=== PATIENT | female | born 1950 | race Caucasian/White ===

== ENCOUNTER 2018-10-25 09:41 | Emergency (ER) | payer BC, MEDICARE ==
[2018-10-25 10:02] VITALS: BP 158/114
--- NOTE | 2018-10-25 10:17 | UC ---
Skin Complaint HPI - HPI Summary HPI Summary: Patient removed a tick from her right lower abdomen and upper right leg on Thursday which had been embedded only a few hours after she had been outdoors. She is here for the doxycycline prophylaxis. - History of Current Complaint Chief Complaint: UCSkin Time Seen by Provider: 10/25/18 10:15 Stated Complaint: TICK BITE Hx Obtained From: Patient ?: No Onset/Duration: Sudden Onset Skin Exposure Onset/Duration: Days Ago Timing: Constant Onset Severity: Mild Current Severity: Mild Pain Intensity: 5 Location: Other - Right lower abdomen and right upper leg. Character: Redness - Very small red laith where the tick bit the patient Aggravating Factor(s): Nothing Alleviating Factor(s): Nothing Associated Signs & Symptoms: Positive: Negative - Allergy/Home Medications Allergies/Adverse Reactions: Allergies Allergy/AdvReac Type Severity Reaction Status Date / Time No Known Allergies Allergy Verified 10/25/18 10:02 Home Medications: Home Medications Hydrochlorothiazide TAB* [Hydrodiuril TAB*] 25 mg PO DAILY 10/25/18 [History Confirmed 10/25/18] PMH/Surg Hx/FS Hx/Imm Hx Previously Healthy: Yes Cardiovascular History: Cardiac Disease, Hypertension - Surgical History Surgical History: Yes Surgery Procedure, Year, and Place: JUL 2014 STENT PLACEMENT S/P [place] - Family History Known Family History: Positive: Non-Contributory - Social History Alcohol Use: Rare Substance Use Type: None Smoking Status (MU): Never Smoked Tobacco - Immunization History Most Recent Influenza Vaccination: mar 2014 Most Recent Tetanus Shot: unknown Most Recent Pneumonia Vaccination: unknown Review of Systems All Other Systems Reviewed And Are Negative: Yes Skin: Positive: Other - Small area of redness on the right lower abdomen and right upper leg where the tick bit the patient. Is Patient Immunocompromised?: No Physical Exam Triage Information Reviewed: Yes Appearance: Well-Appearing, No Pain Distress, Well-Nourished Vital Signs: Initial Vital Signs Temp 98.6 F 10/25/18 09:57 Pulse 74 10/25/18 09:57 Resp 20 10/25/18 09:57 BP 158/114 10/25/18 09:57 Pulse Ox 99 10/25/18 09:57 Vital Signs Reviewed: Yes Skin: Positive: Other - Small area right upper leg where the tick that the patient with minimal erythema present, nontender, no drainage. Small erythematous area right lower abdomen which is nontender and no drainage. Course/Dx - Course Course Of Treatment: Patient has been comfortable here. She had removed the tick after only a few hours of it being embedded in the right upper leg. She requests the doxycycline prophylaxis which was given 200 mg by mouth 1 time. She is to follow-up with her primary care provider if any further concerns or signs of illness which were discussed with her over the next 2-4 weeks. - Diagnoses Provider Diagnosis: Tick bite of abdomen, Tick bite of right lower leg Discharge - Sign-Out/Discharge Documenting (check all that apply): Patient Departure All imaging exams completed and their final reports reviewed: No Studies - Discharge Plan Condition: Good Disposition: HOME Prescriptions: DOXYcycline CAP(*) [DOXYcycline 100MG CAP(*)] 100 mg PO DAILY 1 Days #2 cap Patient Education Materials: Tick Bite (ED) Referrals: La Rose MD [Primary Care Provider] - Additional Instructions: Follow-up with your primary care provider if you develop fever, chills, body aches, joint aches or rash over the next 2-4 weeks. Do not eat any dairy products, antacids or multivitamins 2 hours before you take the doxycycline and 2 hours after you take the doxycycline. - Billing Disposition and Condition Condition: GOOD Disposition: Home - Attestation Statements Provider Attestation: I was available for consult. This patient was seen by the CAREN. The patient was not presented to, seen by, or examined by me. -Padmaja
== END 2018-10-25 10:30 | disposition home or self-care (01) ==
LOC: UCEAST 09:41
DX: S30.861A Insect bite (nonvenomous) of abdominal wall, initial encounter (principal); S80.861A Insect bite (nonvenomous), right lower leg, initial encounter; W57.XXXA Bitten or stung by nonvenomous insect and other nonvenomous arthropods, initial encounter; Y92.9 Unspecified place or not applicable; I11.9 Hypertensive heart disease without heart failure; Z95.5 Presence of coronary angioplasty implant and graft
CPT/HCPCS: 99212; G0463

== ENCOUNTER 2018-11-16 07:25 | Emergency (ER) | payer MEDICARE ==
[2018-11-16 07:36] VITALS: BP 157/98
--- NOTE | 2018-11-16 09:30 | UC ---
Skin Complaint HPI - HPI Summary HPI Summary: PATIENT NOTICED A TICK ATTACHED TO HER LEFT MID BACK WHILE IN THE SHOWER YESTERDAY. THINKS IT MAY HAVE ATTACHED 3 DAYS AGO WHILE SHE WAS [place]. SHE REPORTS HAVING SEVERAL WEEKS OF HEADACHE AND DIFFUSE JOINT PAIN WHICH IS NOT NORMAL FOR HER. SHE STATES SHE HAD A TICK SEVERAL WEEKS AGO AND 2 TICKS ABOUT 3 MONTHS AGO. IS CONCERNED ABOUT LYME DISEASE. NO RASH. NO FEVER. - History of Current Complaint Chief Complaint: UCSkin Time Seen by Provider: 11/16/18 09:11 Stated Complaint: TICK BITE TO BACK Hx Obtained From: Patient Onset/Duration: Still Present Timing: Constant Onset Severity: Mild Current Severity: Mild Pain Intensity: 0 Pain Scale Used: 0-10 Numeric Aggravating Factor(s): Nothing Alleviating Factor(s): Nothing Related History: Insect Bite/Sting - Allergy/Home Medications Allergies/Adverse Reactions: Allergies Allergy/AdvReac Type Severity Reaction Status Date / Time No Known Allergies Allergy Verified 11/16/18 07:37 PMH/Surg Hx/FS Hx/Imm Hx Cardiovascular History: Cardiac Disease - STENT, Hypertension - Surgical History Surgical History: Yes Surgery Procedure, Year, and Place: JUL 2014 STENT PLACEMENT S/P [place] - Family History Known Family History: Positive: Non-Contributory - Social History Alcohol Use: Rare Substance Use Type: None Smoking Status (MU): Never Smoked Tobacco - Immunization History Most Recent Influenza Vaccination: mar 2014 Most Recent Tetanus Shot: unknown Most Recent Pneumonia Vaccination: unknown Review of Systems All Other Systems Reviewed And Are Negative: Yes Constitutional: Positive: Negative Skin: Positive: Other - TICK ATTACHED TO LEFT MID BACK Respiratory: Positive: Negative Cardiovascular: Positive: Negative Gastrointestinal: Positive: Negative Musculoskeletal: Positive: Arthralgia Neurological: Positive: Headache Physical Exam Triage Information Reviewed: Yes Appearance: Well-Appearing, No Pain Distress, Well-Nourished Vital Signs: Initial Vital Signs Temp 97.7 F 11/16/18 07:34 Pulse 85 11/16/18 07:34 Resp 16 11/16/18 07:34 BP 157/98 11/16/18 07:34 Pulse Ox 100 11/16/18 07:34 Vital Signs Reviewed: Yes Eyes: Positive: Conjunctiva Clear ENT: Positive: Hearing grossly normal Neck: Positive: Supple Respiratory: Positive: No respiratory distress, No accessory muscle use Cardiovascular: Positive: Pulses Normal Abdomen Description: Positive: Soft Musculoskeletal: Positive: No Edema Neurological: Positive: Alert Psychological: Positive: Age Appropriate Behavior Skin: Positive: Other - TICK ATTACHED LEFT MID BACK. SLIGHTLY ENGORGED Course/Dx - Course Course Of Treatment: TICK REMOVED IN ENTIRETY FROM LEFT MID BACK BY Afia USING TICK TWISTER. PROPHYLACTIC 200 MG DOSE OF DOXYCYCLINE PROVIDED. PATIENT HAS HAD SEVERAL TICK BITES OVER THE PAST FEW MONTHS AND RECENTLY HAS DEVELOPED HEADACHE AND JOINT PAIN. IS REQUESTING LYME DISEASE TESTING. LYME SEROLOGY DRAWN TODAY. CONTACT INFORMATION FOR DR. JULIETA GALLEGOS PROVIDED. ADVISED TO FOLLOW-UP WITH HER PCP WELL TO INVESTIGATE FOR OTHER UNDERLYING CAUSES OF HER SYMPTOMS. - Diagnoses Provider Diagnosis: Tick bite of back Discharge - Sign-Out/Discharge Documenting (check all that apply): Patient Departure All imaging exams completed and their final reports reviewed: No Studies - Discharge Plan Condition: Stable Disposition: HOME Prescriptions: Doxycycline Monohydrate 2 cap PO ONCE #2 cap Patient Education Materials: Tick Bite (ED) Referrals: Rudy Galleogs MD [Medical Doctor] - If Needed La Rose MD [Primary Care Provider] - If Needed Additional Instructions: TICK BITE PROPHYLAXIS You received a prescription for 200mg of doxycycline for prophylaxis against Lyme disease. The Infectious Disease Society of [place] (IDSA) does not generally recommend antimicrobial prophylaxis for prevention of Lyme disease after a recognized tick bite. However, in areas that are highly endemic for Lyme disease, a single dose of doxycycline may be offered to adult patients (200 mg) who are not and to children older than 8 years of age (4 mg/kg up to a maximum dose of 200 mg) when all of the following circumstances exist: CRITERIA FOR RECEIVING PROPHYLACTIC TREATMENT FOR LYME DISEASE 1) TICK ATTACHED FOR AT LEAST 36 HRS 2) TICK IS AN ADULT OR [place] DEER TICK 3) YOU LIVE IN AN AREA WHERE LYME DISEASE IS PREVALENT (i.e., [place], [place], [place], , [place] , [place], [place], [place], [place], [place], [place], [place], [place], [place]) 4) YOU HAVE NO CONTRAINDICATION TO THE MEDICATION (DOXYCYCLINE) 5) PROPHYLAXIS IS BEGUN WITHIN 72 HRS OF TICK REMOVAL YOUR CHANCES OF DEVELOPING LYME DISEASE FROM THIS TICK ARE SMALL. HOWEVER, 1 TICK MEANS THERE MAY HAVE BEEN OTHER TICKS OF WHICH YOU WEREN'T AWARE. SO BE VIGILANT OF YOUR SYMPTOMS AND DON'T HESITATE TO GET SEEN AGAIN IF YOU DEVELOP UNEXPLAINED FEVER, HEADACHE, JOINT PAIN, BODY ACHES, RASH OR ANY OTHER CONCERNING SYMPTOMS. LYME SEROLOGY DRAWN TODAY. WE WILL CALL YOU WITH ANY ABNORMAL RESULTS. IF THE INITIAL SCREEN IS POSITIVE IT WILL BE SENT FOR CONFIRMATION. I RECOMMEND NOT TAKING A FULL COURSE OF ANTIBIOTICS FOR LYME UNLESS THE CONFIRMATORY TESTING IS ALSO POSITIVE. Antibiotic treatment following a tick bite is not recommended as a means to prevent anaplasmosis, babesiosis, ehrlichiosis, or [place] spotted fever. There is no evidence this practice is effective, and it may simply delay onset of disease. Instead, persons who experience a tick bite should be alert for symptoms suggestive of tickborne illness and consult a physician if fever, rash, headache or other symptoms of concern develop. - Billing Disposition and Condition Condition: STABLE Disposition: Home
== END 2018-11-16 09:40 | disposition home or self-care (01) ==
LOC: UCEAST 07:25
DX: T63.481A Toxic effect of venom of other arthropod, accidental (unintentional), initial encounter (principal); Y92.007 Garden or yard of unspecified non-institutional (private) residence as the place of occurrence of the external cause; I10 Essential (primary) hypertension
CPT/HCPCS: 36415; 86618; 99212; G0463

== ENCOUNTER 2019-04-04 07:35 | Emergency (ER) | payer MEDICARE ==
[2019-04-04 07:47] VITALS: BP 155/94
[2019-04-04] MEDS ORDERED: DOXYcycline CAP(*) 100 MG PO ONE (07:59)
--- NOTE | 2019-04-04 08:04 | UC ---
Skin Complaint HPI - HPI Summary HPI Summary: This patient is a 68-year-old female who presents to the urgent care with a chief complaint of having removed 3 or 4 ticks on her body. She reports to therefore encourage and she does not know for how long they have been there. Patient reports no fever, no joint pain, no rash that she has a headache. She does not complaints. - History of Current Complaint Chief Complaint: UCGeneralIllness Time Seen by Provider: 04/04/19 07:54 Stated Complaint: TICK Hx Obtained From: Patient Onset/Duration: Sudden Onset Skin Exposure Onset/Duration: Days Ago Onset Severity: Mild Pain Intensity: 9 - Allergy/Home Medications Allergies/Adverse Reactions: Allergies Allergy/AdvReac Type Severity Reaction Status Date / Time No Known Allergies Allergy Verified 04/04/19 07:47 PMH/Surg Hx/FS Hx/Imm Hx Endocrine History: Diabetes Cardiovascular History: Hypertension, Myocardial Infarction - Surgical History Surgical History: Yes Surgery Procedure, Year, and Place: JUL 2014 STENT PLACEMENT [place]/P [place] - Family History Known Family History: Positive: Non-Contributory - Social History Alcohol Use: Rare Substance Use Type: None Smoking Status (MU): Never Smoked Tobacco - Immunization History Most Recent Influenza Vaccination: mar 2014 Most Recent Tetanus Shot: unknown Most Recent Pneumonia Vaccination: unknown Review of Systems All Other Systems Reviewed And Are Negative: Yes Constitutional: Positive: Negative Skin: Positive: Negative Eyes: Positive: Negative ENT: Positive: Negative Respiratory: Positive: Negative Cardiovascular: Positive: Negative Gastrointestinal: Positive: Negative Genitourinary: Positive: Negative Motor: Positive: Negative Neurovascular: Positive: Negative Musculoskeletal: Positive: Negative Neurological: Positive: Headache Psychological: Positive: Negative Is Patient Immunocompromised?: No Physical Exam - Summary Physical Exam Summary: VITAL SIGNS: Reviewed. GENERAL: Patient is a well developed and nourished female who is lying comfortably in the stretcher. Patient is not in any acute respiratory distress. HEAD AND FACE: No signs of trauma. No ecchymosis, hematomas or skull depressions. No sinus tenderness. EYES: PERRLA, EOMI x 2, No injected conjunctiva, no nystagmus. EARS: Hearing grossly intact. Ear canals and tympanic membranes are within normal limits. MOUTH: Oropharynx within normal limits. NECK: Supple, trachea is midline, no adenopathy, no JVD, no carotid bruit, no c- spine tenderness, neck with full ROM. CHEST: Symmetric, no tenderness at palpation LUNGS: Clear to auscultation bilaterally. No wheezing or crackles. CVS: Regular rate and rhythm, S1 and S2 present, no murmurs or gallops appreciated. ABDOMEN: Soft, non-tender. No signs of distention. No rebound no guarding, and no masses palpated. Bowel sounds are normal. EXTREMITIES: FROM in all major joints, no edema, no cyanosis or clubbing. NEURO: Alert and oriented x 3. No acute neurological deficits. Speech is normal and follows commands. SKIN: Dry and warm Triage Information Reviewed: Yes Appearance: Well-Appearing Vital Signs: Initial Vital Signs Temp 98.1 F 04/04/19 07:41 Pulse 79 04/04/19 07:41 Resp 18 04/04/19 07:41 BP 155/94 04/04/19 07:41 Pulse Ox 99 04/04/19 07:41 Vital Signs Reviewed: Yes Course/Dx - Course Course Of Treatment: Since the patient is asymptomatic the patient was given the primary doctor dose of 200 mg of doxycycline. She will be discharged home with follow-up with PCP. She was instructed that she develops any other symptoms like rash, fevers, joint pain or any other symptom the patient should immediately follow up with the primary care physician or return to the urgent care. The patient understands and agrees. - Diagnoses Provider Diagnosis: Tick bite Discharge ED - Sign-Out/Discharge Documenting (check all that apply): Patient Departure All imaging exams completed and their final reports reviewed: No Studies - Discharge Plan Condition: Improved Disposition: HOME Patient Education Materials: Tick Bite (ED) Referrals: La Rose MD [Primary Care Provider] - Additional Instructions: Take medications as instructed Increase your fluid intake F/U with PCP in the next 2-3 days Return to the if symptoms worsen - Billing Disposition and Condition Condition: IMPROVED Disposition: Home
== END 2019-04-04 08:04 | disposition home or self-care (01) ==
LOC: UCEAST 07:35
DX: T14.8XXA Other injury of unspecified body region, initial encounter (principal); E11.9 Type 2 diabetes mellitus without complications; I10 Essential (primary) hypertension; R51 Headache; I25.2 Old myocardial infarction; W57.XXXA Bitten or stung by nonvenomous insect and other nonvenomous arthropods, initial encounter; Y92.9 Unspecified place or not applicable
CPT/HCPCS: 99212; A9270-GY; G0463